=== PATIENT | female | born 1980 | race Caucasian/White ===

== ENCOUNTER 2019-10-03 09:23 | Outpatient (CLI) | payer BC, SELFPAY ==
--- NOTE | ~2019-10-03 | MM_ITS ---
EXAMINATION: MM screening [facility] BI w porfirio HISTORY: Screening mammogram TECHNIQUE: Craniocaudal and mediolateral oblique 3-D tomosynthesis images were obtained and synthetic 2-D images were generated. CAD analysis was submitted and interpreted. COMPARISON: No prior mammogram is available for comparison at this institution. BREAST PARENCHYMAL COMPOSITION: There are scattered areas of fibroglandular density. FINDINGS: There is no evidence of suspicious mass, calcification, or architectural distortion to sugg est malignancy in either breast. There has been no suspicious interval change. IMPRESSION: 1. No mammographic evidence of malignancy. 2. Recommend routine screening mammography in one year. BI-RADS Category 1: Negative Reviewed, dictated and finalized at location A. WAREHOUSE DEVELOPER
== END 2019-10-03 09:24 | disposition home or self-care (01) ==
LOC: ANHIMG 09:28
PROVIDERS: PCP Family Medicine; Visit Provider Obstetrics & Gynecology
DX: Z12.31 Encounter for screening mammogram for malignant neoplasm of breast (principal)
CPT/HCPCS: 77063; 77067

== ENCOUNTER 2020-08-07 14:29 | Emergency (ER) | payer BC, SELFPAY ==
--- NOTE | ~2020-08-07 | CT_ITS ---
EXAMINATION: CT abdomen pelvis w con DATE: 08/07/2020 15:59 INDICATION: Low abdominal pain and cramping. History of irritable bowel syndrome. TECHNIQUE: Computed tomography (CT) of the abdomen and pelvis was performed with 100 cc Omnipaque 350 intravenous contrast. The dose-length product was 919.77 mGy-cm. Automated exposure control and iter ative reconstruction technique were employed. COMPARISON: CT dated 05/04/2015 FINDINGS: Lung bases are unremarkable. No significant pleural or pericardial effusion. Heart size nor mal. No significant vascular abnormality. No lymphadenopathy. There is endometrial thickening. There are follicular changes in the ovaries. Normal appendix. Nonobstructive bowel gas pattern. No free air or free fluid. The liver, spleen, pancreas, adrenal glands and kidneys are unremarkable. Small sclerotic lesion of t he right ilium, likely a benign bone island. IMPRESSION: 1. No acute abdominal abnormality. Reviewed, dictated and finalized at location A. N OPERATIONS MANAGER
[2020-08-07 14:33] VITALS: BP 114/76; PULSE 81; RESP 17; TEMP 36.6; O2SAT 99
[2020-08-07 15:04] LABS: Basophils Absolute Auto 0.1 K/mm3 (0.0-0.1); Basophils Percent Auto 0.7 % (0.2-1.2); Eosinophils Absolute Auto 0.3 K/mm3 (0-0.3); Eosinophils Percent Auto 3.4 % (0-4.4); Hematocrit 39.3 % (37.0-47.0); Hemoglobin 13.6 g/dL (12.0-15.0); Immature Granulocyte Absolute 0.03 K/mm3 (0.00-0.031); Immature Granulocyte Percent A 0.4 % (0-0.5); Lymphocytes Absolute Auto 2.09 K/mm3 (0.9-3.2); Lymphocytes Percent Auto 25.3 % (18.3-44.2); Mean Corpuscular HGB Conc 34.6 g/dl (32-36); Mean Corpuscular Hemoglobin 29.2 pg (26-34); Mean Corpuscular Volume 84.5 fl (80-100); Mean Platelet Volume 10.5 fl (7.4-10.4); Monocytes Absolute Auto 0.6 K/mm3 (0.1-0.6); Monocytes Percent Auto 7.4 % (2.6-8.5); Neutrophils Absolute Auto 5.2 K/mm3 (1.3-6.7); Neutrophils Percent Auto 62.8 % (45.5-73.1); Platelet Count Result 240 k/mm3 (150-375); Red Blood Count 4.65 M/mm3 (4.2-5.4); Red Cell Distribution Width 11.8 % (11.5-14.5); White Blood Count 8.3 K/mm3 (4.5-10.0)
[2020-08-07 15:11] LABS: Add Urine Microscopic? YES; Appearance Urine Cloudy (Clear); Bacteria Urine Trace /hpf; Bilirubin Urine Negative (Negative); Blood Urine Negative (Negative); Color Urine Yellow (Yellow); Glucose Urine UA Negative (Negative); Ketones Urine Negative (Negative); Leukocyte Esterase Ur Negative LEU/UL (Negative); Mucus Urine Rare /lpf; Nitrate Urine Negative (Negative); Protein Urine Negative (Negative); RBC Urine 0-2 /hpf (0-2); Specific Grav Ur 1.015 (1.001-1.035); Squamous Epithelial Cell Urine Many /hpf (Few); Urobilinogen Urine Negative mg/dL (<2.0); WBC Urine 0-3 /hpf
[2020-08-07] MEDS: SODIUM CHLORIDE 0.9% IV 1,000 ML 999 ML IV CONT (15:12)
[2020-08-07 15:18] LABS: Alanine Aminotransferase 28 U/L (4-35); Albumin Level 4.1 g/dL (3.5-5.1); Alkaline Phosphatase 104 U/L (38-126); Anion Gap 8 mmol/L (8-16); Aspartate Amino Transferase 28 U/L (14-36); Bilirubin,Total 0.4 mg/dL (0.2-1.3); Blood Urea Nitrogen 17 mg/dL (7-17); Calcium 9.2 mg/dL (8.4-10.2); Carbon Dioxide 27 mmol/L (22-30); Chloride 103 mmol/L (98-107); Estimated CRCL calculation 89 ml/min; Estimated Glomerular Filt Rate > 60; Glucose 94 mg/dL (65-105); Lipase 78 U/L (23-300); Potassium 3.8 mmol/L (3.4-5.0); Sodium 138 mmol/L (137-145)
[2020-08-07] MEDS: FAMOTIDINE 20 MG/2 ML VIAL IV PUSH (15:19)
--- NOTE | 2020-08-07 16:22 | ED.ABDPAIN ---
HPI - Abdominal Pain General Chief Complaint: Abdominal Pain Stated Complaint: ABD Cramping Time Seen by Provider: 08/07/20 14:34 Source: patient and family Mode of arrival: ambulatory Limitations: no limitations History of Present Illness HPI narrative: Patient is a 39-year-old female who presents with diarrhea and cramping of the abdomen for the last several days has not been seen for this complaint has not taken anything for her symptoms history of IBS in the past but this seems to be different. Patient denies fever vomiting URI symptoms sick contacts rectal bleeding or melena Related Data Home Medications Medication Instructions Recorded Confirmed multivitamin 1 tablet PO DAILY 09/20/19 Allergies Allergy/AdvReac Type Severity Reaction Status Date / Time No Known Allergies Allergy Verified 08/07/20 14:59 Review of Systems Review of Systems: All systems reviewed & are unremarkable except as noted in HPI and below PMFSH Past Medical History Medical History (Updated 08/07/20 @ 16:29 by Castillo Morfin PA-C) Gallbladder disease Vaginal delivery x2 Surgical History Surgical History History of tonsillectomy [place] teeth removed Family History Family History Mother Family history of diabetes mellitus in first degree relative Father Family history of lung cancer Grandparent Diabetes mellitus Other Family history of allergic disorder Social History Social History Smoking status: Former smoker Second hand tobacco smoke exposure: No Alcohol intake: current Gender identity (if verbalized by the patient): Female Exam Narrative: Exam Narrative: GENERAL: Well-appearing, well-nourished, and in no acute distress. HEAD: Normocephalic, atraumatic. EYES: PERRLA and EOMI. ENT: Nares clear, no rhinorrhea or epistaxis. Mucous membranes moist. CHEST: Clear to auscultation. No respiratory distress. No wheezes rales or rhonchi HEART: Regular rate and rhythm. No murmur heard. Normal peripheral pulses. ABDOMEN: Soft, tenderness across the lower quadrants of the abdomen no rebound or guarding, nondistended EXTREMITIES: Normal range of motion. No edema. SKIN: Warm, dry, no rash. NEURO: No focal deficits. Alert and oriented x3. PSYCH: Normal mood and affect. Course Course Emergency Course: Patient in the room in no distress aware of case findings treatment plan and diagnosis Vital Signs Vital signs: Vital Signs Temperature 97.8 F 08/07/20 14:33 Pulse Rate 81 08/07/20 14:33 Respiratory Rate 17 08/07/20 14:33 Blood Pressure 114/76 08/07/20 14:33 Pulse Oximetry 99 08/07/20 14:33 Temperature 97.8 F 08/07/20 14:33 Pulse Rate 81 08/07/20 14:33 Respiratory Rate 17 08/07/20 14:33 Blood Pressure 114/76 08/07/20 14:33 Pulse Oximetry 99 08/07/20 14:33 MDM - Abdominal Pain MDM Narrative Medical decision making narrative: Patient with unremarkable evaluation could be IBS or simple diarrhea afebrile nontoxic-appearing no distress ABCs intact vital signs stable Differential Diagnosis Differential diagnosis: Likely abdominal pain, acute appendicitis, calculus of kidney, constipation, diverticulitis, endometriosis, gastroenteritis, pancreatitis and small bowel obstruction Lab Data Result diagrams: 08/07/20 14:56 08/07/20 14:56 Labs: Lab Results 08/07/20 08/07/20 08/07/20 Range/Units 14:56 14:56 14:56 WBC 8.3 (4.5-10.0) K/mm3 RBC 4.65 (4.2-5.4) M/mm3 Hgb 13.6 (12.0-15.0) g/dL Hct 39.3 (37.0-47.0) % MCV 84.5 (80-100) fl MCH 29.2 (26-34) pg MCHC 34.6 (32-36) g/dl RDW 11.8 (11.5-14.5) % Plt Count 240 (150-375) k/mm3 MPV 10.5 H (7.4-10.4) fl Immature Gran % (Auto) 0.4 (0-0.5) % Neut % (Auto) 62.8 (45.5-73.1)
== END 2020-08-07 17:21 | disposition home or self-care (01) ==
PROVIDERS: Emergency Medicine Emergency Medical Services; Emergency Provider Emergency Medicine; PCP Family Medicine
DX: R10.9 Unspecified abdominal pain (principal); K58.9 Irritable bowel syndrome, unspecified; Z87.891 Personal history of nicotine dependence
CPT/HCPCS: 36415; 74177; 80053; 81001; 81025; 83690; 85025; 96361; 96374; 96375; 99284; J0131; J7030; Q9967

== ENCOUNTER 2020-10-18 17:37 | Outpatient (CLI) | payer BC, SELFPAY ==
--- NOTE | ~2020-10-18 | MM_ITS ---
EXAMINATION: MM screening raheem BI w porfirio HISTORY: Screening mammogram TECHNIQUE: Craniocaudal and mediolateral oblique 3-D tomosynthesis images were obtained and synthetic 2-D images were generated. CAD analysis was submitted and interpreted. COMPARISON: 10/03/2019, 09/28/2018 BREAST PARENCHYMAL COMPOSITION: The breasts are heterogeneously dense, which may obscure small masses . FINDINGS: RIGHT BREAST: There is focal asymmetry in the posterior third of the upper outer quadrant of the [address] LEFT BREAST: There is no evidence of suspicious mass, calcification, or architectural distortion to s uggest malignancy. There has been no significant interval change. IMPRESSION: 1. Focal asymmetry of the right breast. 2. Additional mammographic views and possible breast ultrasound are recommended. BI-RADS Category 0: Incomplete: Needs additional imaging evaluation. Reviewed, dictated and finalized at location A. L HOLE FINISH OPENER IMPRESSION: 1. Focal asymmetry of the right breast. 2. Additional mammographic views and possible breast ultrasound are recommended . BI-RADS Category 0: Incomplete: Needs additional imaging evaluation.
== END 2020-10-18 17:38 | disposition home or self-care (01) ==
LOC: ANHIMG 17:40
PROVIDERS: PCP Family Medicine; Visit Provider Obstetrics & Gynecology
DX: Z12.31 Encounter for screening mammogram for malignant neoplasm of breast (principal); R92.8 Other abnormal and inconclusive findings on diagnostic imaging of breast
CPT/HCPCS: 77063; 77067

== ENCOUNTER → 2020-10-24 08:23 | Outpatient (CLI) | payer BC, SELFPAY ==
--- NOTE | ~2020-10-24 | MMUS_ITS ---
EXAMINATION: MM diagnostic mammo unilat RT, US breast RT limited HISTORY: Follow-up right breast asymmetry TECHNIQUE: Additional 3-D tomosynthesis images of the right breast were performed and synthetic 2-D i mages were generated. CAD analysis was submitted and interpreted. High resolution Limited right breas t ultrasound was performed. COMPARISON: Comparison to multiple prior studies sequentially, with oldest reviewed study dated 12/2018. BREAST PARENCHYMAL COMPOSITION: The breasts are heterogenously dense, which may obscure small masses. FINDINGS: MAMMOGRAPHIC FINDINGS: The areas of asymmetry are less dense with spot compression views, most likely benign superimposed fi broglandular tissue. No discrete mass or architectural distortion. No abnormal cluster of calcificati ons. ULTRASOUND: Limited right breast ultrasound: Normal heterogeneous echotexture without evidence for malignancy. IMPRESSION: 1. No evidence for malignancy in the right breast. 2. Routine yearly screening mammogram and regular clinical breast examination are recommended. BI-RADS Category 1: Negative Reviewed, dictated and finalized at location A. MOGRAPH OPERATOR HELPER IMPRESSION: 1. No evidence for malignancy in the right breast. 2. Routine yearly screening mammogram and regular clinical breast examination a re recommended. BI-RADS Category 1: Negative
== END ==
PROVIDERS: PCP Family Medicine; Visit Provider Obstetrics & Gynecology
DX: R92.8 Other abnormal and inconclusive findings on diagnostic imaging of breast (principal)
CPT/HCPCS: 76642; 77065

== ENCOUNTER 2021-11-08 08:55 | Outpatient (CLI) | payer BC, SELFPAY ==
--- NOTE | ~2021-11-08 | MM_ITS ---
EXAMINATION: MM screening [facility] BI w porfirio HISTORY: Screening mammogram TECHNIQUE: Craniocaudal and mediolateral oblique 3-D tomosynthesis images were obtained and synthetic 2-D images were generated. CAD analysis was submitted and interpreted. COMPARISON: 10/24/2020, 10/18/2020, 10/03/2019 BREAST PARENCHYMAL COMPOSITION: There are scattered areas of fibroglandular density. FINDINGS: There is no suspicious mass, calcification, or architectural distortion to suggest malignan cy in either breast. There has been no suspicious interval change. IMPRESSION: 1. No mammographic evidence of malignancy. 2. Recommend routine screening mammography in one year. BI-RADS Category 1: Negative Reviewed, dictated and finalized at location A.
== END 2021-11-08 08:56 | disposition home or self-care (01) ==
LOC: ANHIMG 08:57
PROVIDERS: PCP Family Medicine; Visit Provider Obstetrics & Gynecology
DX: Z12.31 Encounter for screening mammogram for malignant neoplasm of breast (principal)
CPT/HCPCS: 77063; 77067

== ENCOUNTER 2022-12-30 07:54 | Outpatient (CLI) | payer BC, SELFPAY ==
--- NOTE | ~2022-12-30 | MM_ITS ---
EXAMINATION: MM screening [facility] BI w porfirio HISTORY: Screening mammogram TECHNIQUE: Craniocaudal and mediolateral oblique 3-D tomosynthesis images were obtained and synthetic 2-D images were generated. CAD analysis was submitted and interpreted. COMPARISON: 11/08/2021, 10/24/2020, 10/18/2020, 10/03/2019 BREAST PARENCHYMAL COMPOSITION: There are scattered areas of fibroglandular density. FINDINGS: No suspicious mass, calcification, or architectural distortion are identified in either katey ast to suggest malignancy. There has been no suspicious interval change. IMPRESSION: 1. No mammographic evidence of malignancy. 2. Recommend routine screening mammography in one year. BI-RADS Category 1: Negative Reviewed, dictated and finalized at location A.
== END 2022-12-30 07:55 | disposition home or self-care (01) ==
LOC: ANHIMG 07:54
PROVIDERS: PCP Family Medicine; Visit Provider Obstetrics & Gynecology
DX: Z12.31 Encounter for screening mammogram for malignant neoplasm of breast (principal)
CPT/HCPCS: 77063; 77067

== ENCOUNTER 2024-02-29 15:24 | Outpatient (CLI) | payer BC, SELFPAY ==
--- NOTE | ~2024-02-29 | MM_ITS ---
EXAMINATION: MM screening [facility]heem BI w porfirio HISTORY: Screening TECHNIQUE: Craniocaudal and mediolateral oblique 3-D tomosynthesis images were obtained and synthetic 2-D images were generated. CAD analysis was submitted and interpreted. COMPARISON: Comparison to multiple prior studies sequentially, with oldest reviewed study dated 04/2023. BREAST PARENCHYMAL COMPOSITION: Not dense: There are scattered areas of fibroglandular density. FINDINGS: There is no evidence of suspicious mass, calcification, or architectural distortion to sugg est malignancy in either breast. There has been no suspicious interval change. IMPRESSION: 1. No mammographic evidence of malignancy. 2. Recommend routine screening mammography in one year. BI-RADS Category 1: Negative Reviewed, dictated and finalized at location B.
== END 2024-02-29 15:25 | disposition home or self-care (01) ==
LOC: ANHIMG 15:35
PROVIDERS: PCP Family Medicine; Visit Provider Obstetrics & Gynecology
DX: Z12.31 Encounter for screening mammogram for malignant neoplasm of breast (principal)
CPT/HCPCS: 77063; 77067

== ENCOUNTER 2024-04-11 01:17 | Day surgery (SDC) | payer BC, SELFPAY ==
[2024-03-23 12:55] VITALS: BMI 30.4
[2024-04-11 07:45] VITALS: BP 124/77; PULSE 82; RESP 16; TEMP 36.2; O2SAT 100; BMI 29.8
[2024-04-11] MEDS: LACTATED RINGERS 1,000 ML 150 ML IV CONT (08:04)
--- NOTE | 2024-04-11 08:16 | WPDANESEPPF ---
Anes - Initial Pre Proc Eval Procedure: Operation Date: 04/11/24 09:00 Proposed Procedures p Screening Colonoscopy - Saul Crowley MD Date/Time: 04/11/24 08:16 Surgeon: Saul Crowley MD Pre Op Diagnosis: neoplasm screening Patient Data Age: 43 Gender: F Height: 1.65 m Weight: 81.3 kg Last Vital Signs Temp 97.2 F L 04/11/24 07:45 Pulse 82 04/11/24 07:45 Resp 16 04/11/24 07:45 BP 124/77 04/11/24 07:45 Pulse Ox 100 04/11/24 07:45 O2 Del Method Room Air 04/11/24 07:45 Allergies Allergy/AdvReac Type Severity Reaction Status Date / Time No Known Allergies Allergy Verified 04/11/24 07:52 Home Medications Medication Instructions Recorded Confirmed Type multivitamin (Daily Multi-Vitamin 1 tablet PO DAILY 09/20/19 04/11/24 History tablet) melatonin 5 mg capsule 5 mg PO HS 10/15/21 04/11/24 History Patient hx anesthesia problems: none Family hx anesthesia problems: none Results Review: All pre-operative results and documents have been reviewed as part of the pre-operative evaluation. [facility] Past Medical History Medical History Gallbladder disease Vaginal delivery x2 Surgical History Surgical History History of cholecystectomy History of tonsillectomy [place] teeth removed Family History Family History (Updated 12/22/23 @ 08:22 by Michaela Cruz CMA) Mother Family history of diabetes mellitus in first degree relative MGUS (monoclonal gammopathy of unknown significance) Father Family history of lung cancer Grandparent Diabetes mellitus Other Family history of allergic disorder Social History Social History Smoking packs per day: 1 Smoking cigarettes per day: 20.0 Years smoked: 6 Smoking pack-years: 6.00 Smoking status: Former smoker Tobacco type: cigarettes Second hand tobacco smoke exposure: No Alcohol intake: never Substance use: never Substance use type: does not use Living arrangements: with family Gender identity (if verbalized by the patient): Female Spiritual care concerns: No Anes - Eval Final PreProcedure Day of Procedure 04/11/24 08:16 Patient weight: obese Heart: regular rate and rhythm Lungs: clear to auscultation Airway: Mallampati scale class II Neurological: alert and oriented Last oral intake: >/= 8 hours ASA classification: II Emergent: no Anesthetic plan: proceed Anesthesia type and monitoring: general GIVS and standard monitoring Results Review: All pre-operative results and documents have been reviewed as part of the pre-operative evaluation. Informed Consent: The patient's anesthetic plan and its attendant risks and benefits were discussed with the patient/family/POA. Questions were solicited and answers provided to the satisfaction of the patient/family/POA.
--- NOTE | 2024-04-11 08:53 | PM.HPGS ---
History of Present Illness History of Present Illness Consent: Risks, benefits, and alternatives have been discussed and questions answered. Patient agrees to proceed with procedure. Chief complaint: neoplasm screening Narrative: Home Arias is a 43 year old female here for first screening colonoscopy Review of Systems Review of Systems: All systems reviewed & are unremarkable except as noted in HPI and below PMFSH Past Medical History Medical History Gallbladder disease Vaginal delivery x2 Surgical History Surgical History History of cholecystectomy History of tonsillectomy [place] teeth removed Family History Family History (Updated 12/22/23 @ 08:22 by Michaela Cruz CMA) Mother Family history of diabetes mellitus in first degree relative MGUS (monoclonal gammopathy of unknown significance) Father Family history of lung cancer Grandparent Diabetes mellitus Other Family history of allergic disorder Social History Social History Smoking packs per day: 1 Smoking cigarettes per day: 20.0 Years smoked: 6 Smoking pack-years: 6.00 Smoking status: Former smoker Tobacco type: cigarettes Second hand tobacco smoke exposure: No Alcohol intake: never Substance use: never Substance use type: does not use Living arrangements: with family Gender identity (if verbalized by the patient): Female Spiritual care concerns: No Meds Home Medications and Allergies Home Medications Medication Instructions Recorded Confirmed Type multivitamin (Daily Multi-Vitamin 1 tablet PO DAILY 09/20/19 04/11/24 History tablet) melatonin 5 mg capsule 5 mg PO HS 10/15/21 04/11/24 History Allergies Allergy/AdvReac Type Severity Reaction Status Date / Time No Known Allergies Allergy Verified 04/11/24 07:52 Vital Signs Vital Signs - 24 hr 04/11/24 07:45 Temperature 97.2 F L Pulse Rate 82 Respiratory Rate 16 Blood Pressure 124/77 Pulse Oximetry 100 Oxygen Delivery Room Air Exam Const: General: comfortable and no acute distress HENMT: Face/Nose/Sinus: Normal nares present Eyes: General: appearance normal, both eyes and all related structures Neck: Neck: no JVD Resp: Auscultation: clear to auscultation bilaterally Cardio: Rate: regular rate Rhythm: regular rhythm GI: Inspection: non-distended GI Palp: Yes Soft to palpation Skin: General skin exam: normal color Neuro: General: gait normal Speech: normal speech Extrem: General: normal to inspection Psych: Mental Status: mental status grossly normal Assessment and Plan Assessment and plan (1) Colon cancer screening: Code(s): Z12.11 - Encounter for screening for malignant neoplasm of colon Status: Acute Assessment and Plan: colonoscopy
[2024-04-11 09:09] LABS: BEDSIDEPREGUCG Negative
[2024-04-11 09:10] VITALS: BP 128/68; PULSE 83; RESP 22; O2SAT 97
[2024-04-11 09:20] VITALS: BP 109/69; PULSE 77; RESP 18; O2SAT 100
[2024-04-11 09:30] VITALS: BP 106/73; PULSE 65; RESP 22; O2SAT 100
== END 2024-04-11 09:36 | disposition home or self-care (01) ==
PROVIDERS: PCP Family Medicine; Visit Provider Internal Medicine Gastroenterology
PROC: 0DJD8ZZ Inspection of Lower Intestinal Tract, Via Natural or Artificial Opening Endoscopic (ICD-10-PCS; CPT 45378; principal; 2024-04-11 09:00)
DX: Z12.11 Encounter for screening for malignant neoplasm of colon (principal); K64.8 Other hemorrhoids; K82.9 Disease of gallbladder, unspecified; E66.9 Obesity, unspecified; Z68.29 Body mass index [BMI] 29.0-29.9, adult; Z98.890 Other specified postprocedural states; Z90.49 Acquired absence of other specified parts of digestive tract; Z87.891 Personal history of nicotine dependence; Z80.1 Family history of malignant neoplasm of trachea, bronchus and lung
CPT/HCPCS: 45378; J2704; J7120

== ENCOUNTER 2024-11-17 00:39 | Day surgery (SDC) | payer BC, SELFPAY ==
[2024-11-15 15:38] VITALS: BMI 31.3
--- OUTSIDE RECORDS SUMMARY | 2024-11-17 00:42 | XMS_ITS | Clinical Summary ---
Author Organization [facility] Address [address] [place] [address] Care Team Providers Care Sheet Metal Duct Installer Name Role Phone Unavailable Primary Care Provider Unavailabl e Source Comments [facility],non-owned Affiliates and Associated Physician Practices is amultiple site organization consisting of ambulatory clinics and hospital sitesin [place], [place], [place] and [place]. This disclosure is being madepursuant to the Care Everywhere program and may not contain all information available regarding this patient. Last updated 18.[facility] Allergies No known active allergies Active Problems Problem Noted Date Diagnosed Date Supervision of normal first 09/11/2009 Social History Tobacco Use Types Packs/Day Years Used Date Smoking Tobacco: Never Assessed Sex and Gender Information Value Date Recorded Sex Assigned at Not on file Gender Identity Not on file Sexual Orientation Not on file Plan of Treatment Health Maintenance Due Date Last Done Comments COLOGUARD (AGES 45-75) - COL ON CA SCREENING 1978 COLON MONITORING 1978 COLONOSCOPY - COLON CA SCREENING 1978 CT COLONOGRAPHY - COLON CA SCREENING 1978 Colorectal Cancer Screening 1978 FIT - COLON CA SCREENING 1978 FLEX SIG - COLON CA SCREENING 1978 LIPID TESTING 1978 MAMMOGRAM 1978 PAP SMEAR 1978 HIV SCREENING 1993 HEPATITIS C SCREENING 09/20/1996 DTAP/TDAP/TD VACCINES (1 - Tdap) 1997 HEPATITIS B VACCINE (1 of 3 - 19+ 3-dose series) 1997 COVID-19 VACCINE (2023-2 5 season) 2024 INFLUENZA VACCINE (#1) 2024 DEPRESSION SCREENING 08/24/2024 ZOSTER VACCINE (1 of 2) 2028 HIB VACCINE Aged Out No longer eligi ble based on patient's age to complete this topic HPV VACCINE Aged Out No longer eligi ble based on patient's age to complete this topic MENINGOCOCCAL (Group B) VACC INE SHARED DECISION-MAKING Aged Out No longer eligibl e based on patient's age to complete this topic MENINGOCOCCAL GROUPS A/C/Y/W VACCINE Aged Out No longer eligible b ased on patient's age to complete this topic PNEUMOCOCCAL VACCINE Aged Out No long er eligible based on patient's age to complete this topic
--- OUTSIDE RECORDS SUMMARY | 2024-11-17 00:42 | XMS_ITS | Clinical Summary ---
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 Gender Identity Not on file Sexual Orientation Not on file Plan of Treatment Health Maintenance Due Date Last Done Comments DTAP/TDAP/TD VACCINES (1 - Tdap) 1997 HEPATITIS B VACCINES (1 of 3 - 19+ 3-dose series) 1997 PAP SMEAR 1999 CERVICAL CANCER SCREENING 2008 HPV/Cotest 2008 PAP SMEAR 2008 BREAST CANCER SCREENING 2018 COLORECTAL SCREENING 2023 Colorectal Cancer Screening 2023 FIT-DNA Q 3 years 2023 FIT/FOBT Q 1 year 2023 Flex Sig/CT Colonography Q 5 years 2023 INFLUENZA VACCINE (#1) 2024 HPV VACCINES Aged Out No longer eligi ble based on patient's age to complete this topic PNEUMOCOCCAL VACCINE 0-49 YEARS Aged Out No longer eligible based on patient's age to complete this topic Insurance Care Teams Mental Health Coordinator Relationship Specialty Start Date End Date Steven Foley MD [address] [place] [phone] PCP - General Family Practice 04/15/12
[2024-11-17 09:58] VITALS: BP 118/79; PULSE 72; RESP 16; TEMP 36.4; O2SAT 100; BMI 31.7
[2024-11-17 10:09] LABS: BEDSIDEPREGUCG Negative (Negative)
[2024-11-17] MEDS: LACTATED RINGERS 1,000 ML 150 ML IV CONT (10:17)
--- NOTE | 2024-11-17 11:29 | WPDANESEPPF ---
Anes - Initial Pre Proc Eval Procedure: Operation Date: 11/17/24 10:30 Proposed Procedures p Esophagogastroduodenoscopy - Juan Pablo Garland MD Date/Time: 11/17/24 11:29 Surgeon: Juan Pablo Garland MD Pre Op Diagnosis: Epigastric pain Patient Data Age: 44 Gender: F Height: 1.65 m Weight: 86.6 kg Last Vital Signs Temp 97.5 F L 11/17/24 09:58 Pulse 72 11/17/24 09:58 Resp 16 11/17/24 09:58 BP 118/79 11/17/24 09:58 Pulse Ox 100 11/17/24 09:58 O2 Del Method Room Air 11/17/24 09:58 Allergies Allergy/AdvReac Type Severity Reaction Status Date / Time No Known Allergies Allergy Verified 11/17/24 10:06 Home Medications ?Medication ?Instructions ?Recorded ?Confirmed ?Type multivitamin (Daily Multi-Vitamin 1 tablet PO DAILY 09/20/19 11/17/24 History tablet) omeprazole 40 mg capsule,delayed 40 mg PO DAILY #100 caps 11/01/24 11/17/24 Rx release Laboratory Tests 11/17/24 10:07 POC Urine HCG, Qual Negative (Negative) Patient hx anesthesia problems: none Family hx anesthesia problems: none Results Review: All pre-operative results and documents have been reviewed as part of the pre-operative evaluation. [facility] Past Medical History Medical History (Updated 11/01/24 @ 10:44 by Danika Jolly PA-C) Decreased hearing of left ear GERD (gastroesophageal reflux disease) Odynophagia Colon cancer screening Gallbladder disease Vaginal delivery x2 Surgical History Surgical History History of cholecystectomy [place] teeth removed History of tonsillectomy Family History Family History Mother Family history of diabetes mellitus in first degree relative MGUS (monoclonal gammopathy of unknown significance) Father Family history of lung cancer Grandparent Diabetes mellitus Other Family history of allergic disorder Social History Social History Smoking packs per day: 1 Smoking cigarettes per day: 20.0 Years smoked: 8 Smoking pack-years: 8.00 Smoking status: Former smoker Tobacco type: cigarettes Second hand tobacco smoke exposure: No Alcohol intake: current Alcohol use details: 1 drink a month Substance use: never Substance use type: does not use Living arrangements: with family Gender identity (if verbalized by the patient): Female Spiritual care concerns: No Anes - Eval Final PreProcedure Day of Procedure 11/17/24 11:29 Patient weight: normal Heart: regular rate and rhythm Lungs: clear to auscultation Airway: Mallampati scale class II Neurological: alert and oriented Last oral intake: >/= 8 hours ASA classification: II Emergent: no Anesthetic plan: proceed Anesthesia type and monitoring: general GIVS and standard monitoring Results Review: All pre-operative results and documents have been reviewed as part of the pre-operative evaluation. Informed Consent: The patient's anesthetic plan and its attendant risks and benefits were discussed with the patient/family/POA. Questions were solicited and answers provided to the satisfaction of the patient/family/POA.
--- NOTE | 2024-11-17 12:31 | SUR.PREOP ---
Due to running behind on cases today, patient was notified of the delay.
--- NOTE | 2024-11-17 12:49 | PM.IMHP ---
H&P: HPI History of Present Illness Date/Time: 11/17/24 12:49 Chief Complaint: Chest discomfort-GERD. Narrative: The patient had been complaining of sore throat and intermittent atypical chest tightness. The symptoms are not relieved by omeprazole. She has been referred for EGD. Review of Systems Review of Systems: All systems reviewed & are unremarkable except as noted in HPI and below PMFSH Past Medical History Medical History (Updated 11/01/24 @ 10:44 by Danika Jolly PA-C) Decreased hearing of left ear GERD (gastroesophageal reflux disease) Odynophagia Colon cancer screening Gallbladder disease Vaginal delivery x2 Surgical History Surgical History History of cholecystectomy [place] teeth removed History of tonsillectomy Family History Family History Mother Family history of diabetes mellitus in first degree relative MGUS (monoclonal gammopathy of unknown significance) Father Family history of lung cancer Grandparent Diabetes mellitus Other Family history of allergic disorder Social History Social History Smoking packs per day: 1 Smoking cigarettes per day: 20.0 Years smoked: 8 Smoking pack-years: 8.00 Smoking status: Former smoker Tobacco type: cigarettes Second hand tobacco smoke exposure: No Alcohol intake: current Alcohol use details: 1 drink a month Substance use: never Substance use type: does not use Living arrangements: with family Gender identity (if verbalized by the patient): Female Spiritual care concerns: No Meds Home Medications and Allergies Home Medications ?Medication ?Instructions ?Recorded ?Confirmed ?Type multivitamin (Daily Multi-Vitamin 1 tablet PO DAILY 09/20/19 11/17/24 History tablet) omeprazole 40 mg capsule,delayed 40 mg PO DAILY #100 caps 11/01/24 11/17/24 Rx release Allergies Allergy/AdvReac Type Severity Reaction Status Date / Time No Known Allergies Allergy Verified 11/17/24 10:06 Vital Signs Vital Signs - 24 hr 11/17/24 09:58 Temperature 97.5 F L Pulse Rate 72 Respiratory Rate 16 Blood Pressure 118/79 Pulse Oximetry 100 Oxygen Delivery Room Air Exam Const: General: cooperative and healthy appearing Resp: Effort & Inspection: normal respiratory effort and able to speak in complete sentences Auscultation: clear to auscultation bilaterally Cardio: Rate: regular rate Rhythm: regular rhythm GI: Inspection: normal to inspection GI Palp: No No hepatosplenomegaly present Auscultation: normal bowel sounds Rectal Exam: deferred Skin: General skin exam: normal color Psych: Appearance: grossly normal Mental Status: mental status grossly normal Assessment and Plan Assessment and plan (1) GERD (gastroesophageal reflux disease): Qualifiers: Esophagitis presence: esophagitis presence not specified Qualified Code(s): K21.9 - Gastro-esophageal reflux disease without esophagitis Code(s): K21.9 - Gastro-esophageal reflux disease without esophagitis Status: Acute Assessment and Plan: The patient is deemed a good candidate for the procedure. Consent signed. Will proceed.
[2024-11-17 13:06] VITALS: BP 108/73; PULSE 90; RESP 15; O2SAT 98
[2024-11-17 13:16] VITALS: BP 115/79; PULSE 84; RESP 20; O2SAT 100
[2024-11-17 13:26] VITALS: BP 114/77; PULSE 67; RESP 17; O2SAT 100
== END 2024-11-17 13:31 | disposition home or self-care (01) ==
PROVIDERS: Anesthesiology; PCP Family Medicine; Visit Provider Internal Medicine Gastroenterology
PROC: 0DJ08ZZ Inspection of Upper Intestinal Tract, Via Natural or Artificial Opening Endoscopic (ICD-10-PCS; CPT 43239; principal; 2024-11-17 10:30)
DX: K20.80 Other esophagitis without bleeding (principal); K82.9 Disease of gallbladder, unspecified; Z98.890 Other specified postprocedural states; Z90.49 Acquired absence of other specified parts of digestive tract; Z87.891 Personal history of nicotine dependence; Z80.1 Family history of malignant neoplasm of trachea, bronchus and lung
CPT/HCPCS: 43239; 88305; J2003; J2704; J7120

== ENCOUNTER 2024-12-29 08:37 | Outpatient (CLI) | payer BC, SELFPAY ==
--- OUTSIDE RECORDS SUMMARY | 2024-12-29 08:47 | XMS_ITS | Continuity of Care Document ---
Author Organization [facility] Address [address] [place] [address] Phone Care Team Providers Care Chief Green Officer Name Role Phone Unavailable Unavailable Unavailable Advance Directives Directive Yes / No Effective Date File Name No Information Encounters Encounter Description Practice Location Reason(s) For Visit Diagnoses Date Provider Providers Copied on Encounter [facility], [address] [facility], [place], [place], [id number], [place] tel:[phone] [facility] No Information 2 No Information Referring Provider: EUNICE FRY, [address] [place] [address],[place], [address]. tel:[phone] Family History Family Member Type Diagnosis Age At Onset No Information Payers Payer name Insurance type Covered libertarian ID Authoriza tikelli(s) [facility] [id number] CI [id number] Social History Type Description Quantity Date Captured Comments Sex Female Smoking Status No Information Chief Complaint And Reason For Visit No Information History Of Present Illness Encounter Date Complaint History Of Prese nt Illness No Information Instructions Date Instruction Additional Infor mation No Information Assessments Type Assessment Date No Information
--- OUTSIDE RECORDS SUMMARY | 2024-12-29 08:47 | XMS_ITS | Clinical Summary ---
Author Organization [facility] Address [address] [place] [address] Care Team Providers Care Qa Test Analyst Name Role Phone Unavailable Primary Care Provider Unavailabl e Source Comments [facility],non-owned Affiliates and Associated Physician Practices is amultiple site organization consisting of ambulatory clinics and hospital sitesin [place], [place], [place] and [place]. This disclosure is being madepursuant to the Care Everywhere program and may not contain all information available regarding this patient. Last updated 18.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 Gender Identity Not on file Sexual Orientation [...] - 19+ 3-dose series) 1997 COVID-19 VACCINE (1 - 2024-2 5 season) 2024 DEPRESSION SCREENING 08/24/2024 INFLUENZA VACCINE (Season Ended) 2025 ZOSTER VACCINE (1 of 2) 2028 HIB [...] patient's age to complete this topic Insurance [facility] [place] [id number] [facility] Address: [facility] [id number] [place] [address] SELF PAY NO INSURANCE Member Subscriber Plan / Payer (Ef fective for All Dates) Name:Home Arias Member ID:Not on file Relation to Subscriber:Not on file Name:HOME ARIAS Subscriber ID:Not on file (Home) Address: [facility] [place] [id number] Payer ID:Not on file Group ID:Not on file Type:Self Pay Address: [facility] Address: [facility] [id number] [place] [address]
--- OUTSIDE RECORDS SUMMARY | 2024-12-29 08:47 | XMS_ITS | Clinical Summary ---
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 Gender Identity Not on file Sexual Orientation Not on file Plan of Treatment Health Maintenance Due Date Last Done Comments DTAP/TDAP/TD VACCINES (1 - Tdap) 1997 HEPATITIS B VACCINES (1 of 3 - 19+ 3-dose series) 1997 HPV/Cotest (21-29) 1999 CERVICAL CANCER SCREENING 2008 HPV/Cotest (30-65) 2008 PAP SMEAR 2008 BREAST CANCER SCREENING 2018 COLORECTAL SCREENING 2023 Colorectal Cancer Screening 2023 FIT-DNA Q 3 years 2023 FIT/FOBT Q 1 year 2023 Flex Sig/CT Colonography Q 5 years 2023 INFLUENZA VACCINE (#1) 2024 HPV VACCINES Aged Out No longer eligi ble based on patient's age to complete this topic Insurance Care Teams Fountain Clerk Relationship Specialty Start Date End Date Steven Foley MD [address] [place] [phone] PCP - General Family Practice 04/15/12
== END 2024-12-29 08:38 | disposition home or self-care (01) ==
LOC: ANHLAB 08:39
PROVIDERS: PCP Family Medicine; Visit Provider Nurse Practitioner Obstetrics & Gynecology
DX: E04.9 Nontoxic goiter, unspecified (principal)
CPT/HCPCS: 36415; 84443

== ENCOUNTER 2025-05-31 15:18 | Outpatient (CLI) | payer BC, SELFPAY ==
--- NOTE | ~2025-05-31 | MM_ITS ---
EXAMINATION: MM screening raheem BI w porfirio HISTORY: Screening TECHNIQUE: Craniocaudal and mediolateral oblique 3-D tomosynthesis images were obtained and synthetic 2-D images were generated. CAD analysis was submitted and interpreted. COMPARISON: Comparison to multiple prior studies sequentially, with oldest reviewed study dated , 10/03/2019 BREAST PARENCHYMAL COMPOSITION: There are scattered areas of fibroglandular density. FINDINGS: There is no evidence of suspicious mass, calcification, or architectural distortion to suggest malignancy in either breast. IMPRESSION: 1. No mammographic evidence of malignancy. 2. Recommend routine screening mammography in one year. BI-RADS Category 1: Negative Reviewed, dictated and finalized at location B.
== END 2025-05-31 15:19 | disposition home or self-care (01) ==
LOC: ANHFOHIMG 15:20
PROVIDERS: PCP Family Medicine; Visit Provider Family Medicine
DX: Z12.31 Encounter for screening mammogram for malignant neoplasm of breast (principal)
CPT/HCPCS: 77063; 77067